=== PATIENT | female | born 1955 | race Caucasian/White ===

== ENCOUNTER → 2022-07-19 | Day surgery (SDC) | payer OTHER, BC | END | disposition home or self-care (01) | LOC: FMAMMOTONE 10:09 | PROVIDERS: ATTEND Surgery Surgical Oncology | PROC: 0HBV3ZX Excision of Bilateral Breast, Percutaneous Approach, Diagnostic (ICD-10-PCS; principal; 2022-07-19) | DX: N60.11 Diffuse cystic mastopathy of right breast (principal); N60.12 Diffuse cystic mastopathy of left breast; N60.22 Fibroadenosis of left breast; N60.31 Fibrosclerosis of right breast; N60.32 Fibrosclerosis of left breast; N60.82 Other benign mammary dysplasias of left breast; N64.89 Other specified disorders of breast; R92.0 Mammographic microcalcification found on diagnostic imaging of breast | CPT/HCPCS: 19081; 76098-TC-FY; 87899; 88305-TC; A4648 ==